=== PATIENT | female | born 1985 | race African-American/Black ===

== ENCOUNTER 2016-11-16 21:28 | Emergency (ER) | payer MEDICAID ==
[~2016-11-16] VITALS: Ht 167.6 cm; Wt 111.0 kg
[~2016-11-16 21:28] MED LIST: GLUCTAB PO; GLYB1TAB51 PO; IBUP800T23 PO; NAPR550T3 PO; ROBA750T3 PO; ZOFR4TAB3 SL
[2016-11-16 21:31] VITALS: BP 120/71; PULSE 93; RESP 16; TEMP 98.4; O2SAT 100
== END 2016-11-16 22:06 | disposition left against medical advice (07) ==
LOC: NED 21:28
DX: R69 Illness, unspecified (principal); Z53.21 Procedure and treatment not carried out due to patient leaving prior to being seen by health care provider
CPT/HCPCS: 99281

== ENCOUNTER 2017-05-22 20:59 | Emergency (ER) | payer MEDICAID ==
[~2017-05-22 20:59] MED LIST changes: +NAPR-803 PO; -NAPR550T3 PO
[2017-05-22 21:00] VITALS: BP 133/68; PULSE 93; RESP 16; TEMP 99; O2SAT 100
[2017-05-22 22:02] VITALS: BP 137/62; PULSE 96; RESP 16; O2SAT 100
--- NOTE | 2017-05-22 22:21 | PD ---
HPI Chief Complaint: Headache Time Seen by Provider: 22:12 Travel History International Travel<30 days: No Contact w/Intl Traveler<30days: No Traveled to known affect area: No History of Present Illness HPI The patient is a 31 year old female who presents to the [facility] emergency department with a history of reportedly beginning to have increased fatigue on Friday. She reports that she took a nap and then woke up with a headache at approximate 4:15 PM. She reports that the headache was overlying her temples and then moved to the top of her head. She reports that it is generalized at this point. She reports that the headache is pulsatile in character. She reports that it has been unrelieved with use of several over-the -counter medications including Tylenol, ibuprofen, and BC powders. She reports that she's had nausea and vomiting twice related to the headache. She reports having a family history of headaches. She reports that she has had dizziness associated with this. She reports that this lasts for a few seconds at a time when she tries to lie flat or sit up. She denies having any numbness or tingling to her extremities. She denies having any weakness of her extremities. Otherwise on review of systems, she denies having any recent fevers, cough, congestion, neck pain, chest pain, shortness of breath, abdominal pain, diarrhea, urinary symptoms, or other neurologic symptoms. She denies having any sensitivity to light or sound with a headache. She reports that the headache has gradually worsened with time. The patient reports a prior history of having ringing in her ears after she had an epidural for delivery of her . She reports that that lasted for a one-month period of time and resolved on its own. [facility] Past Medical History Narrative Medical The patient's past medical history is significant for sickle cell trait, diabetes, related hypertension, incompetent cervix, history of ectopic with surgical treatment, history of bronchitis, history of pneumonia, history of left lower extremity DVT. Anemia: Yes Diabetes: Yes Patient Takes Glucophage: Yes (05/20/17) Diminished Hearing: No Hypertension: Yes (GESTATIONAL HTN 2003) Neurologic: Yes (since epidural with child ) Reproductive: Yes (HX INCOMPETENT CERVIX WITH PURSE STRING PROCEEDURE) Respiratory: Yes (BRONCHITIS) Immunizations Current: Yes Pneumonia: Yes Sickle Cell Disease: Yes (trait) ?: Not LMP: 05/16/17 : 6 Para: 3 Miscarriage: 2 : 1 Ectopic : Yes Tubal Ligation: Yes Past Surgical History Narrative Surgical The patient's past surgical history is significant for bilateral tubal ligation , tube rupture with ectopic . Abdominal Surgery: Yes (ectopic ruptured) Gynecologic Surgery: Yes (RUPTURED FALLOPIAN TUBE) Social History Alcohol Use: No Tobacco Use: No (1 CIGARETTE EVERY OTHER DAY) Substance Use: No Allergies-Medications (Allergen,Severity, Reaction): Coded Allergies: amoxicillin (Unverified Allergy, Severe, Swelling, 01/07/17) penicillin G (Unverified Allergy, Mild, Swelling, 01/07/17) morphine (Unverified Adverse Reaction, Severe, 01/07/17) SEVERE ITCHING Reported Meds & Prescriptions Reported Meds & Active Scripts Active Phenergan (Promethazine HCl) 25 Mg Tablet 25 Mg PO Q8HR PRN Meclizine (Meclizine HCl) 25 Mg Tab 25 Mg PO TID PRN Naproxen Sodium DS (Naproxen Sodium) 550 Mg Tab 550 Mg PO BID Ibuprofen 800 Mg Tab 800 Mg PO Q8 PRN Robaxin-750 (Methocarbamol) 750 Mg Tab 750 Mg PO QID PRN FOR PAIN Zofran ODT (Ondansetron HCl) 4 Mg Tab 4 Mg SL Q6H PRN FOR NAUSEA/VOMITING Reported Diabeta 5 mg (Glyburide) 5 Mg Tab 1 Tab PO BIDAC Glucophage XR 24 HR (Metformin HCl) 500 Mg Tab 500 Mg PO BIDPC Review of Systems Except as stated in HPI: all other systems reviewed are Neg General / Constitutional: No: Fever Eyes: No: Visual changes HENT: Positive: Headaches, Vertigo, No: Lightheadedness, Rhinorrhea, Congestion , Neck Stiffness, Neck Pain Cardiovascular: No: Chest Pain or Discomfort Respiratory: No: Shortness of Breath Gastrointestinal: No: Abdominal Pain Genitourinary: No: Dysuria Musculoskeletal: No: Pain Skin: No Rash Neurologic: Positive: Dizziness, No: Weakness, Syncope, Focal Abnormalities, Change in Mentation, Slurred Speech, Sensory Disturbance Psychiatric: No: Depression Endocrine: No: Polydipsia Hematologic/Lymphatic: No: Easy Bruising Physical Exam Narrative General: The patient is a well-developed well-nourished female in no acute distress. Head and Neck exam: Head is normocephalic atraumatic. Sinuses: The patient reports having sinus tenderness on palpation over frontal sinuses and bilateral temples. Eyes: EOMI, pupils are equal round and reactive to light. No nystagmus noted. The patient on exam is noted with moving her head quickly to have vertigo. This quickly extinguishes after a few seconds holding her head still. Nose: Midline septum with pink mucous membranes Mouth: Dentition unremarkable. Moist mucus membranes. Posterior oropharynx is not erythematous. No tonsillar hypertrophy. Uvula midline. Airway patent. Neck: No palpable lymphadenopathy. No nuchal rigidity. No thyromegaly. Negative Brudzinski, negative Kernig sign. Cardiovascular: Regular rate and rhythm without murmurs, gallops, or rubs. Lungs: Clear to auscultation bilaterally. No wheezes, rhonchi, or rales. Abdomen: Soft, without tenderness to palpation in all 4 quadrants of the abdomen. No guarding, rebound, or rigidity. Extremities: No clubbing, cyanosis, or edema. 2+ pulses in all 4 extremities. No calf tenderness on palpation. Back: No spinous process tenderness to palpation. No costovertebral angle tenderness to palpation. Neurologic Exam: Cranial nerves 2-12 were intact on exam. Strength is 5/5 in all 4 extremities. No sensory deficits noted. No dysdiadochokinesis. Good finger to nose and Heel to freitas bilaterally. Skin Exam: No rash noted. Intact skin that is warm and dry. Data Data Last Documented VS Vital Signs Date Time Temp Pulse Resp B/P (MAP) Pulse Ox O2 Delivery O2 Flow Rate FiO2 05/23/17 01:21 05/22/17 23:45 80 14 100 Room Air 05/22/17 21:00 99.0 Orders Orders Complete Blood Count With Diff (05/22/17 22:22) Comprehensive Metabolic Panel (05/22/17 22:22) Urinalysis - C+S If Indicated (05/22/17 22:22) Magnesium (Mg) (05/22/17 22:22) Ct Brain W/O Iv Contrast(Rout) (05/22/17 22:22) Iv Access Insert/Monitor (05/22/17 22:22) Ecg Monitoring (05/22/17 22:22) Oximetry (05/22/17 22:22) Ondansetron Inj (Zofran Inj) (05/22/17 22:30) Sodium Chlor 0.9% 1000 Ml Inj (Ns 1000 M (05/22/17 22:30) Ed Urine Pregnancytest Poc (05/22/17 22:22) Ketorolac Inj (Toradol Inj) (05/22/17 23:30) Diphenhydramine Inj (Benadryl Inj) (05/22/17 23:30) Prochlorperazine Inj (Compazine Inj) (05/22/17 23:30) Ed Discharge Order (05/23/17 00:58) Labs Laboratory Tests Test 05/22/17 02:47 05/22/17 22:47 White Blood Count 5.8 TH/MM3 Red Blood Count 4.61 MIL/MM3 Hemoglobin 11.1 GM/DL Hematocrit 34.7 % Mean Corpuscular Volume 75.4 FL Mean Corpuscular Hemoglobin 24.1 PG Mean Corpuscular Hemoglobin Concent 32.0 % Red Cell Distribution Width 17.0 % Platelet Count 196 TH/MM3 Mean Platelet Volume 8.4 FL Neutrophils (%) (Auto) 53.5 % Lymphocytes (%) (Auto) 32.3 % Monocytes (%) (Auto) 9.9 % Eosinophils (%) (Auto) 3.9 % Basophils (%) (Auto) 0.4 % Neutrophils # (Auto) 3.1 TH/MM3 Lymphocytes # (Auto) 1.9 TH/MM3 Monocytes # (Auto) 0.6 TH/MM3 Eosinophils # (Auto) 0.2 TH/MM3 Basophils # (Auto) 0.0 TH/MM3 CBC Comment DIFF FINAL Differential Comment Blood Urea Nitrogen 10 MG/DL Creatinine 0.61 MG/DL Random Glucose 86 MG/DL Total Protein 7.6 GM/DL Albumin 3.2 GM/DL Calcium Level 8.9 MG/DL Magnesium Level 1.9 MG/DL Alkaline Phosphatase 68 U/L Aspartate Amino Transf (AST/SGOT) 12 U/L Alanine Aminotransferase (ALT/SGPT) 15 U/L Total Bilirubin 0.2 MG/DL Sodium Level 142 MEQ/L Potassium Level 4.2 MEQ/L Chloride Level 108 MEQ/L Carbon Dioxide Level 27.1 MEQ/L Anion Gap 7 MEQ/L Estimat Glomerular Filtration Rate 140 ML/MIN Urine Color YELLOW Urine Turbidity CLEAR Urine pH 6.0 Urine Specific [place] 1.014 Urine Protein NEG mg/dL Urine Glucose (UA) NEG mg/dL Urine Ketones NEG mg/dL Urine Occult Blood MOD Urine Nitrite NEG Urine Bilirubin NEG Urine Urobilinogen LESS THAN 2.0 MG/DL Urine Leukocyte Esterase NEG Urine RBC 16 /hpf Urine WBC 3 /hpf Urine Squamous Epithelial Cells 1 /hpf Urine Mucus FEW /lpf Microscopic Urinalysis Comment CULT NOT INDICATED MDM Medical Decision Making Medical Screen Exam Complete: Yes Emergency Medical Condition: Yes Medical Record Reviewed: Yes Interpretation(s) Last Impressions Head CT 05/22/172221 Signed Impressions: Service Date/Time: April 23:33 - CONCLUSION: No acute intracranial findings. Lj Sullivan MD Differential Diagnosis Tension headache, versus migraine headache, versus sinusitis, versus viral syndrome Narrative Course During the course of the patients emergency department visit, the patients history, examination, and differential diagnosis were reviewed with the patient. The patient was placed on a business account manager with oximetry and frequent blood pressure monitoring. The patient had IV access obtained and blood work sent for analysis. The patient was initially provided normal saline 1 L IV fluid bolus, Zofran 4 mg IV. The patient was then given Toradol 15 mg IV for pain, Compazine 5 mg IV for nausea, Benadryl 25 mg IV. The patients laboratory studies were reviewed and remarkable for a white count of 5.8, hemoglobin 11.1, platelets 196 with 9.9 monocytes. CMP is remarkable for chloride of 108, AST 12, albumin 3.2. Urinalysis shows moderate occult blood, 16 RBCs, otherwise unremarkable. Radiology studies were reviewed and remarkable for CT scan of the brain that shows no acute intracranial findings. The patient reported that her headache was improved. The patient was able to walk easily without assistance. The patient had a normal gait. The patient will be discharged home with a prescription for nausea medication, and Antivert. The patient is resting comfortably and feels better, is alert and in no distress. The patients results and examination findings were discussed with the patient. The repeat examination is unremarkable and benign. The history, exam, diagnostic testing, and current condition do not suggest any significant pathology to warrant further testing, continued ED treatment, admission, or surgical evaluation at this point. The vital signs have been stable. The patient does not have uncontrollable pain, intractable vomiting, or other significant symptoms. The patient's condition is stable and appropriate for discharge. The patient will pursue further outpatient evaluation with a primary care physician or other designated or consulting physician as indicated in the discharge instructions. The patient expressed understanding and was agreeable with this plan. Diagnosis Primary Impression: Headache Qualified Codes: R51 - Headache Additional Impression: Vertigo Referrals: Primary Care Physician 2 days Patient Instructions: Acute Headache (ED), General Instructions, Vertigo (ED) Med/Other Pt SpecificInfo: Prescription(s) given Scripts Promethazine (Phenergan) 25 Mg Tablet 25 MG PO Q8HR Y for NAUSEA OR VOMITING, #6 TAB 0 Refills Prov: Perla Lopez MD 05/23/17 Meclizine (Meclizine) 25 Mg Tab 25 MG PO TID Y for VERTIGO, #10 TAB 0 Refills Prov: Perla Lopez MD 05/23/17 Disposition: 01 DISCHARGE HOME Condition: Stable Perla Lopez MD May 22, 2017 22:21
[2017-05-22] MEDS ORDERED: SODIUM CHLOR 0.9% 1000 ML INJ 1,000 ML IV ONE (22:30)
[2017-05-22] MEDS ORDERED: ONDANSETRON HCL 4 MG/2 ML VIAL IV ONE (22:30)
[2017-05-22 23:01] VITALS: RESP 18; O2SAT 98
[2017-05-22 23:09] LABS: AUTOMATED NEUTROPHIL # 3.1 TH/MM3 (1.8-7.7); BASOPHIL % 0.4 % (0.0-2.0); EOSINOPHIL # 0.2 TH/MM3 (0-0.4); EOSINOPHIL % 3.9 % (0.0-4.0); HEMATOCRIT 34.7 % (35.0-46.0); HEMOGLOBIN 11.1 GM/DL (11.6-15.3); LYMPH % 32.3 % (9.0-44.0); LYMPHOCYTE # 1.9 TH/MM3 (1.0-4.8); MEAN CELL VOLUME 75.4 FL (80.0-100.0); MEAN CORPUSCULAR HEMOGLOBIN 24.1 PG (27.0-34.0); MEAN PLATELET VOLUME 8.4 FL (7.0-11.0); MONO % 9.9 % (0.0-8.0); MONOCYTE # 0.6 TH/MM3 (0-0.9); NEUT % 53.5 % (16.0-70.0); PLATELET COUNT 196 TH/MM3 (150-450); RED BLOOD COUNT 4.61 MIL/MM3 (4.00-5.30); WHITE BLOOD COUNT 5.8 TH/MM3 (4.0-11.0)
[2017-05-22] MEDS ORDERED: PROCHLORPERAZINE INJ 10 MG/2 ML VIAL IV PUSH ONE (23:30)
[2017-05-22] MEDS ORDERED: diphenhydrAMINE HCL 50 MG/ML VIAL IV PUSH ONE (23:30)
[2017-05-22] MEDS ORDERED: KETOROLAC TROMETHAMINE 30 MG/ML (IVP) VIAL IV PUSH ONE (23:30)
[2017-05-22 23:42] LABS: BILIRUBIN, URINE NEG (NEG); BLOOD, URINE MOD (NEG); GLUCOSE,URINE NEG (NEG); KETONE, URINE NEG (NEG); MUCUS URINE FEW /lpf (OCC); NITRITE,URINE NEG (NEG); SQUAMOUS EPITHELIAL CELL URINE 1 /hpf (0-5); URINE COLOR YELLOW (YELLW/STRAW); URINE LEUKOCYTE ESTERASE NEG (NEG)
[2017-05-22 23:45] VITALS: BP 137/89; PULSE 80; RESP 14; O2SAT 100
[2017-05-22 23:53] LABS: ALBUMIN 3.2 GM/DL (3.4-5.0); ALT (GPT) 15 U/L (10-53); AST (GOT) 12 U/L (15-37); BICARBONATE 27.1 MEQ/L (21.0-32.0); BLOOD UREA NITROGEN 10 MG/DL (7-18); CALCIUM 8.9 MG/DL (8.5-10.1); CHLORIDE 108 MEQ/L (98-107); CREATININE 0.61 MG/DL (0.50-1.00); GLOMERULAR FILTRATION RATE 140 ML/MIN (>89); GLUCOSE,RANDOM 86 MG/DL (74-106); MAGNESIUM 1.9 MG/DL (1.5-2.5); SODIUM (NA) 142 MEQ/L (136-145)
[2017-05-22 23:56] LABS: ALKALINE PHOSPHATASE 68 U/L (45-117); TOTAL BILIRUBIN ADULT 0.2 MG/DL (0.2-1.0); TOTAL PROTEIN 7.6 GM/DL (6.4-8.2)
--- NOTE | 2017-05-22 23:59 | RADRPT ---
EXAM DATE/TIME: 05/22/2017 23:33 [facility] COMPARISON: CT BRAIN W/O CONTRAST, July 14, 2014, 4:51. INDICATIONS : Cephalgia. RADIATION DOSE: 40.81 CTDIvol (mGy) MEDICAL HISTORY : None SURGICAL HISTORY : None. ENCOUNTER: Initial ACUITY: 4 - 6 days PAIN SCALE: 8/10 LOCATION: cranial TECHNIQUE: Multiple contiguous axial images were obtained of the head. Using automated exposure control and adj ustment of the mA and/or kV according to patient size, radiation dose was kept as low as reasonably a chievable to obtain optimal diagnostic quality images. DICOM format image data is available electro nically for review and comparison. FINDINGS: CEREBRUM: The ventricles are normal for age. No evidence of midline shift, mass lesion, hemorrhage or acute in farction. No extra-axial fluid collections are seen. POSTERIOR FOSSA: The cerebellum and brainstem are intact. The 4th ventricle is midline. The cerebellopontine angle i s unremarkable. EXTRACRANIAL: The visualized portion of the orbits is intact. SKULL: The calvaria is intact. No evidence of skull fracture. CONCLUSION: No acute intracranial findings. Lj Sullivan MD on May 22, 2017 at 23:56 Board Certified Radiologist. This report was verified electronically.
[2017-05-23] MEDS ORDERED: PROM25TA10 PO (00:44)
[2017-05-23] MEDS ORDERED: MECL-62 PO (00:44)
== END 2017-05-23 01:26 | disposition home or self-care (01) ==
LOC: NEPE 20:59
DX: R51 Headache (principal); R42 Dizziness and giddiness; R11.2 Nausea with vomiting, unspecified; E11.9 Type 2 diabetes mellitus without complications
CPT/HCPCS: 70450; 80053; 81001; 83735; 84703; 85025; 96374; 96375; 99285; J0780; J1200; J1885; J2405; J7030

== ENCOUNTER 2017-06-26 14:23 | Emergency (ER) | payer MEDICAID ==
[~2017-06-26] VITALS: Ht 167.6 cm; Wt 111.5 kg
[~2017-06-26 14:23] MED LIST changes: +MECL-62 PO; +PROM25TA10 PO
[2017-06-26 14:25] VITALS: BP 139/77; PULSE 101; RESP 16; TEMP 98.3; O2SAT 98
[2017-06-26 15:54] LABS: AUTOMATED NEUTROPHIL # 3.3 TH/MM3 (1.8-7.7); BASOPHIL % 0.3 % (0.0-2.0); EOSINOPHIL # 0.2 TH/MM3 (0-0.4); EOSINOPHIL % 3.8 % (0.0-4.0); HEMATOCRIT 37.3 % (35.0-46.0); LYMPH % 28.9 % (9.0-44.0); LYMPHOCYTE # 1.6 TH/MM3 (1.0-4.8); MEAN CORPUSCULAR HEMOGLOBIN 23.8 PG (27.0-34.0); MEAN CORPUSCULAR HGB CONC 32.1 % (32.0-36.0); MEAN PLATELET VOLUME 8.5 FL (7.0-11.0); MONO % 8.9 % (0.0-8.0); MONOCYTE # 0.5 TH/MM3 (0-0.9); NEUT % 58.1 % (16.0-70.0); PLATELET COUNT 169 TH/MM3 (150-450); RED BLOOD COUNT 5.04 MIL/MM3 (4.00-5.30); RED CELL DISTRIBUTION WIDTH 16.9 % (11.6-17.2); WHITE BLOOD COUNT 5.6 TH/MM3 (4.0-11.0)
[2017-06-26 15:58] LABS: BACTERIA, URINE RARE /hpf; BILIRUBIN, URINE NEG (NEG); BLOOD, URINE NEG (NEG); GLUCOSE,URINE NEG (NEG); KETONE, URINE NEG (NEG); MUCUS URINE FEW /lpf (OCC); NITRITE,URINE NEG (NEG); PH, URINE 5.5 (5.0-8.5); SQUAMOUS EPITHELIAL CELL URINE 23 /hpf (0-5); URINE COLOR YELLOW (YELLW/STRAW); URINE LEUKOCYTE ESTERASE MOD (NEG)
[2017-06-26 16:13] LABS: ALBUMIN 3.3 GM/DL (3.4-5.0); AST (GOT) 13 U/L (15-37); BICARBONATE 25.7 MEQ/L (21.0-32.0); BLOOD UREA NITROGEN 7 MG/DL (7-18); CALCIUM 9.1 MG/DL (8.5-10.1); CHLORIDE 104 MEQ/L (98-107); CREATININE 0.68 MG/DL (0.50-1.00); GLOMERULAR FILTRATION RATE 124 ML/MIN (>89); GLUCOSE,RANDOM 113 MG/DL (74-106); SODIUM (NA) 137 MEQ/L (136-145)
[2017-06-26 16:14] LABS: ALT (GPT) 17 U/L (10-53)
[2017-06-26 16:16] LABS: ALKALINE PHOSPHATASE 76 U/L (45-117); TOTAL BILIRUBIN ADULT 0.3 MG/DL (0.2-1.0); TOTAL PROTEIN 8.1 GM/DL (6.4-8.2)
[2017-06-26 16:54] LABS: LYMPHOCYTES 33 % (9-44); MONOCYTES 7 % (0-8); NEUTROPHIL # MANUAL DIFF 3.2 TH/MM3 (1.8-7.7); POLYS (SEG NEUTROPHILS) 57 % (16-70)
[2017-06-26] MEDS ORDERED: SODIUM CHLOR 0.9% 1000 ML INJ 1,000 ML IV SCH (17:12)
[2017-06-26] MEDS ORDERED: ALUMINUM/MAGNESIUM/SIMETH 30 ML CUP PO ONE (17:15)
[2017-06-26] MEDS ORDERED: LIDOCAINE VISCOUS 2% SOLN 15 ML UDC PO ONE (17:15)
[2017-06-26] MEDS ORDERED: PANTOPRAZOLE SODIUM 40 MG VIAL IVP ONE (17:15)
[2017-06-26] MEDS ORDERED: ONDANSETRON HCL 4 MG/2 ML VIAL IVP ONE (17:15)
--- NOTE | 2017-06-26 17:16 | PD ---
HPI Chief Complaint: GI Complaint Time Seen by Provider: 17:08 Travel History International Travel<30 days: No Contact w/Intl Traveler<30days: No Traveled to known affect area: No History of Present Illness HPI This is a 31-year-old female who presents for evaluation nausea, vomiting, abdominal pain. Symptoms initially started 5 days ago. She reports that the symptoms have waxed and waned since then. Symptoms have been persisting and worsening today and this is what prompted evaluation. She reports one episode of hematemesis today associated with the vomiting. She has been trying to hydrate with liquid bland diet such as pavithra lila, soup. She reports intermittent crampy type of pain in the epigastrium and right lower quadrant. Denies any flank pain, dysuria, fevers or chills. Denies any dietary indiscretions. Denies any diarrhea. Denies any sick contacts. She has no other complaints at this time. PFS Past Medical History Anemia: Yes Diabetes: Yes Diminished Hearing: No Hypertension: Yes (GESTATIONAL HTN 2003) Neurologic: Yes (since epidural with child ) Reproductive: Yes (HX INCOMPETENT CERVIX WITH PURSE STRING PROCEEDURE) Respiratory: Yes (BRONCHITIS) Immunizations Current: Yes Pneumonia: Yes Sickle Cell Disease: Yes (trait) ?: Not : 6 Para: 3 Miscarriage: 2 : 1 Ectopic : Yes Tubal Ligation: Yes Past Surgical History Abdominal Surgery: Yes (ectopic ruptured) Gynecologic Surgery: Yes (RUPTURED FALLOPIAN TUBE) Social History Alcohol Use: No Tobacco Use: No (1 CIGARETTE EVERY OTHER DAY) Substance Use: No Allergies-Medications (Allergen,Severity, Reaction): Coded Allergies: amoxicillin (Unverified Allergy, Severe, Swelling, 06/26/17) penicillin G (Unverified Allergy, Mild, Swelling, 06/26/17) morphine (Unverified Adverse Reaction, Severe, 06/26/17) SEVERE ITCHING Reported Meds & Prescriptions Reported Meds & Active Scripts Active Zofran (Ondansetron HCl) 4 Mg Tab 4 Mg PO Q6HR PRN Meclizine (Meclizine HCl) 25 Mg Tab 25 Mg PO TID PRN Reported Metformin (Metformin HCl) 500 Mg Tab 500 Mg PO BIDPC Review of Systems Except as stated in HPI: all other systems reviewed are Neg Physical Exam Narrative GENERAL: Well-developed well-nourished female no acute distress SKIN: Warm and dry. HEAD: Atraumatic. Normocephalic. EYES: Pupils equal and round. No scleral icterus. No injection or drainage. ENT: No nasal bleeding or discharge. Mucous membranes pink and moist. NECK: Trachea midline. No JVD. CARDIOVASCULAR: Regular rate and rhythm. No murmur appreciated. RESPIRATORY: No accessory muscle use. Clear to auscultation. Breath sounds equal bilaterally. GASTROINTESTINAL: Abdomen soft, focal tenderness to palpation in the right lower quadrant and epigastrium without guarding. No CVA tenderness. MUSCULOSKELETAL: No obvious deformities. No clubbing. No cyanosis. No edema. NEUROLOGICAL: Awake and alert. No obvious cranial nerve deficits. Motor grossly within normal limits. Normal speech. PSYCHIATRIC: Appropriate mood and affect; insight and judgment normal. Data Data Last Documented VS Vital Signs Date Time Temp Pulse Resp B/P (MAP) Pulse Ox O2 Delivery O2 Flow Rate FiO2 06/26/17 14:25 98.3 101 16 139/77 (97) 98 Orders Orders Complete Blood Count With Diff (06/26/17 14:36) Comprehensive Metabolic Panel (06/26/17 14:36) Lipase (06/26/17 14:36) Urinalysis - C+S If Indicated (06/26/17 14:38) Ed Urine Pregnancytest Poc (06/26/17 14:38) Ct Abd/Pel W Iv Contrast(Rout) (06/26/17 17:12) Iv Access Insert/Monitor (06/26/17 17:12) Ondansetron Inj (Zofran Inj) (06/26/17 17:15) Pantoprazole Inj (Protonix Inj) (06/26/17 17:15) Sodium Chlor 0.9% 1000 Ml Inj (Ns 1000 M (06/26/17 17:12) Al-Mag Hy-Si 40-40-4 Mg/Ml Liq (Mag-Al P (06/26/17 17:15) Lidocaine 2% Viscous (Xylocaine 2% Visco (06/26/17 17:15) Iohexol 350 Inj (Omnipaque 350 Inj) (06/26/17 18:34) Ed Discharge Order (06/26/17 18:47) Labs Laboratory Tests Test 06/26/17 14:45 06/26/17 14:50 Urine Color YELLOW Urine Turbidity HAZY Urine pH 5.5 Urine Specific [place] 1.021 Urine Protein TRACE mg/dL Urine Glucose (UA) NEG mg/dL Urine Ketones NEG mg/dL Urine Occult Blood NEG Urine Nitrite NEG Urine Bilirubin NEG Urine Urobilinogen LESS THAN 2.0 MG/DL Urine Leukocyte Esterase MOD Urine RBC 5 /hpf Urine WBC 4 /hpf Urine Squamous Epithelial Cells 23 /hpf Urine Bacteria RARE /hpf Urine Mucus FEW /lpf Microscopic Urinalysis Comment CULT NOT INDICATED White Blood Count 5.6 TH/MM3 Red Blood Count 5.04 MIL/MM3 Hemoglobin 12.0 GM/DL Hematocrit 37.3 % Mean Corpuscular Volume 74.0 FL Mean Corpuscular Hemoglobin 23.8 PG Mean Corpuscular Hemoglobin Concent 32.1 % Red Cell Distribution Width 16.9 % Platelet Count 169 TH/MM3 Mean Platelet Volume 8.5 FL Neutrophils (%) (Auto) 58.1 % Lymphocytes (%) (Auto) 28.9 % Monocytes (%) (Auto) 8.9 % Eosinophils (%) (Auto) 3.8 % Basophils (%) (Auto) 0.3 % Neutrophils # (Auto) 3.3 TH/MM3 Lymphocytes # (Auto) 1.6 TH/MM3 Monocytes # (Auto) 0.5 TH/MM3 Eosinophils # (Auto) 0.2 TH/MM3 Basophils # (Auto) 0.0 TH/MM3 CBC Comment AUTO DIFF Differential Total Cells Counted 100 Neutrophils % (Manual) 57 % Lymphocytes % 33 % Monocytes % 7 % Eosinophils % 3 % Neutrophils # (Manual) 3.2 TH/MM3 Differential Comment FINAL DIFF MANUAL Platelet Estimate NORMAL Platelet Morphology Comment CLUMPED Blood Urea Nitrogen 7 MG/DL Creatinine 0.68 MG/DL Random Glucose 113 MG/DL Total Protein 8.1 GM/DL Albumin 3.3 GM/DL Calcium Level 9.1 MG/DL Alkaline Phosphatase 76 U/L Aspartate Amino Transf (AST/SGOT) 13 U/L Alanine Aminotransferase (ALT/SGPT) 17 U/L Total Bilirubin 0.3 MG/DL Sodium Level 137 MEQ/L Potassium Level 3.6 MEQ/L Chloride Level 104 MEQ/L Carbon Dioxide Level 25.7 MEQ/L Anion Gap 7 MEQ/L Estimat Glomerular Filtration Rate 124 ML/MIN Lipase 78 U/L [facility] Medical Decision Making Medical Screen Exam Complete: Yes Emergency Medical Condition: Yes Medical Record Reviewed: Yes Differential Diagnosis Dehydration, Jodee-Mcconnell tear, gastritis, gastroenteritis, pancreatitis, appendicitis, colitis, cholecystitis Narrative Course Lab work was obtained in triage and has been reviewed. CBC, CMP, lipase and urinalysis revealed no significant abnormalities. She does have focal pain in the right lower quadrant and epigastrium and therefore CT abdomen and pelvis has been ordered. She will be given IV fluids, Zofran, Protonix as well as a GI cocktail for symptom treatment. CT abdomen and pelvis reveals mild hepatosplenomegaly with no acute findings. Her symptoms improved with the administration of medication. I suspect she has a viral gastroenteritis. Her one episode of hematemesis today was likely secondary to Jodee-Mcconnell tear. She will be discharged with a short course of antiemetics. Diagnosis Primary Impression: Gastroenteritis Additional Instructions: Zofran for nausea. Slowly advance diet as tolerated. Follow-up closely with primary care physician and return for any emergent medical conditions. Med/Other Pt SpecificInfo: Prescription(s) given Scripts Ondansetron (Zofran) 4 Mg Tab 4 MG PO Q6HR Y for NAUSEA OR VOMITING, #20 TAB 0 Refills Prov: Jaydon Jonas MD 06/26/17 Disposition: DISCHARGE HOME Condition: Stable Omar Solomon Jun 26, 2017 17:16
[2017-06-26] MEDS ORDERED: METF500T PO (18:19)
[2017-06-26] MEDS ORDERED: IOHEXOL 350 MG/ML 10 ML VIAL (for RAD DIAG) IVCONTRAST ONE (18:34)
--- NOTE | 2017-06-26 18:43 | RADRPT ---
EXAM DATE/TIME: 06/26/2017 18:27 [facility] COMPARISON: No previous studies available for comparison. INDICATIONS : Abdominal pain with nausea and vomiting. IV CONTRAST: 80 cc Omnipaque 350 (iohexol) IV ORAL CONTRAST: No oral contrast ingested. RADIATION DOSE: 21.61 CTDIvol (mGy) MEDICAL HISTORY : Sickle cell disease. Hypertension. Diabetes mellitus type 2. SURGICAL HISTORY : Tubal ligation. ENCOUNTER: Initial ACUITY: 1 day PAIN SCALE: 8/10 LOCATION: abdomen TECHNIQUE: Volumetric scanning of the abdomen and pelvis was performed. Using automated exposure control and ad justment of the mA and/or kV according to patient size, radiation dose was kept as low as reasonably achievable to obtain optimal diagnostic quality images. DICOM format image data is available electro nically for review and comparison. FINDINGS: LOWER LUNGS: The visualized lower lungs are clear. LIVER: Mild hepatomegaly is noted. Homogeneous density without lesion. There is no dilation of the biliary tree. No calcified gallstones. SPLEEN: Mild splenomegaly is noted. PANCREAS: Within normal limits. KIDNEYS: Normal in size and shape. There is no mass, stone or hydronephrosis. ADRENAL GLANDS: Within normal limits. VASCULAR: There is no aortic aneurysm. BOWEL/MESENTERY: The stomach, small bowel, and colon demonstrate no acute abnormality. There is no free intraperitone al air or fluid. ABDOMINAL WALL: Within normal limits. RETROPERITONEUM: There is no lymphadenopathy. BLADDER: No wall thickening or mass. REPRODUCTIVE: Within normal limits. INGUINAL: There is no lymphadenopathy or hernia. MUSCULOSKELETAL: Mild scoliosis of the thoracolumbar spine is noted. CONCLUSION: 1. Mild hepatosplenomegaly. 2. Mild scoliosis of the thoracolumbar spine. Silverio Walters MD on June 26, 2017 at 18:37 Board Certified Radiologist. This report was verified electronically.
[2017-06-26] MEDS ORDERED: ZOFR4TAB PO (18:48)
== END 2017-06-26 19:14 | disposition home or self-care (01) ==
LOC: NEPK 14:23
DX: K52.9 Noninfective gastroenteritis and colitis, unspecified (principal); R16.2 Hepatomegaly with splenomegaly, not elsewhere classified; M41.9 Scoliosis, unspecified; D64.9 Anemia, unspecified; E11.9 Type 2 diabetes mellitus without complications; I10 Essential (primary) hypertension; D57.3 Sickle-cell trait; F17.210 Nicotine dependence, cigarettes, uncomplicated; Z79.899 Other long term (current) drug therapy
CPT/HCPCS: 74177; 80053; 81001; 83690; 84703; 85007; 85027; 96374; 96375; 99285; C9113; J2405; J7030; Q9967